=== PATIENT | female | born 2000 | race Caucasian/White ===

== ENCOUNTER 2023-12-20 16:14 | Outpatient (CLI) | payer BC | END 2023-12-20 16:15 | disposition home or self-care (01) | LOC: SCSRAD 16:14 | PROVIDERS: ATTEND Family Medicine | DX: R05.9 Cough, unspecified (principal) | CPT/HCPCS: 71046 ==

== ENCOUNTER 2024-03-12 10:05 | Outpatient (CLI) | payer BC ==
[2024-03-12] MEDS ORDERED: Iopamidol 30 ML ONE (10:34)
[2024-03-12 10:39] LABS: BHCG - Serum Negative (NEGATIVE); Pregs Control Background? CLEAR/WHITE (CLR/WHITE); Pregs Control Bar Appear? YES (CONTROL BAR)
== END 2024-03-12 10:06 | disposition home or self-care (01) ==
LOC: RAD 10:05
PROVIDERS: ATTEND Student in an Organized Health Care Education/Training Program
DX: Z31.41 Encounter for fertility testing (principal)
CPT/HCPCS: 58340; 74740; 84703; Q9967

== ENCOUNTER 2024-04-04 13:31 | Outpatient (CLI) | payer BC | END 2024-04-04 13:32 | disposition home or self-care (01) | LOC: SCSMRI 13:31 | PROVIDERS: ATTEND Student in an Organized Health Care Education/Training Program | DX: E22.1 Hyperprolactinemia (principal) | CPT/HCPCS: 70553 ==